=== PATIENT | female | born 1950 | race Caucasian/White ===

== ENCOUNTER → 2016-08-22 | Outpatient (CLI) | payer MEDICARE ==
--- NOTE | 2016-08-22 15:00 | Diagnostic Imaging Report ---
PROCEDURE: US left lower extremity venous. TECHNIQUE: Multiple real-time grayscale images were obtained over the left lower extremity in various projections. Additional duplex Doppler and color Doppler images were also obtained. INDICATION: Leg pain and warmth. FINDINGS: There is normal compression flow and augmentation demonstrated from the common femoral vein through the popliteal vein. The visualized calf veins are patent. There is, however, a nonvascular collection demonstrated within the musculature of the left calf measuring 4.2 x 5.2 x 1.2 cm. This could relate to a muscle injury and intramuscular hematoma. IMPRESSION: 1. There is no sonographic evidence of left lower extremity deep venous thrombosis. 2. There is an abnormal avascular collection demonstrated within the musculature of the left calf, which may relate to prior muscular injury and intramuscular hematoma. This could be further assessed with MRI if clinically indicated. Dictated by: Dictated on workstation # [id number]
== END ==
LOC: RAD 14:09
DX: M79.605 Pain in left leg (principal)